=== PATIENT | male | born 1980 | race Caucasian/White ===

== ENCOUNTER 2017-09-19 10:37 | Emergency (ER) | payer OTHER ==
[~2017-09-19] VITALS: Ht 180.3 cm; Wt 71.9 kg
[2017-09-19 10:40] VITALS: Ht 180.3 cm; Wt 71.9 kg
[2017-09-19] MEDS ORDERED: IBUP-1542 PO (11:21)
[2017-09-19] MEDS ORDERED: AMOX500C2 PO (11:21)
--- NOTE | 2017-09-19 11:36 | ERD ---
ER Documentation Chief Complaint Chief Complaint HAS DENTAL PAIN R SIDE OF FACE HPI 37-year-old male comes in with right-sided dental pain that has been ongoing for almost a year now and is worse over the last 2 days. He describes achy pain to tooth, it is radiating to the cheek with swelling, it is worse when he speaks or tries to eat. He has some right-sided facial swelling with this and he has significant caries. Has not had any fevers, chills, chest discomfort voice changes, drooling. ROS All systems reviewed and are negative except as per history of present illness. Medications Home Meds Active Scripts Ibuprofen* (Motrin*) 600 Mg Tab, 600 MG PO Q6, #30 TAB Prov:DUANE OSUNA PA-C 09/19/17 Amoxicillin* (Amoxicillin*) 500 Mg Cap, 500 MG PO TID for 7 Days, CAP Prov:DUANE OSUNA PA-C 09/19/17 Allergies Allergies: Coded Allergies: No Known Allergy (Unverified , 06/16/13) PMhx/Soc History of Surgery: No Anesthesia Reaction: No Hx Neurological Disorder: No Hx Respiratory Disorders: No Hx Cardiac Disorders: No Hx Psychiatric Problems: No Hx Miscellaneous Medical Probl: No Hx Alcohol Use: No Hx Substance Use: No Hx Tobacco Use: No Physical Exam Vitals Vital Signs Date Time Temp Pulse Resp B/P Pulse Ox O2 Delivery O2 Flow Rate FiO2 09/19/17 10:40 98.0 94 18 129/85 99 Physical Exam General: Well-developed, well-nourished. The patient appears in no acute distress. HEENT: Head is normocephalic, atraumatic. No scleral icterus. There is right- sided facial swelling, there is no fluctuance, and there is no trismus, no drooling, oropharynx is clear. There are multiple caries, tooth is fractured, it is in the right upper teeth, approximately 20% of that is remaining rest has disintegrated. Poor dentition throughout, including multiple caries. Neck: Supple. Nontender. Lungs: Clear to auscultation. Normal air movement. Heart: Regular rate and rhythm. S1 and S2 are normal. No murmurs, gallops, or rubs. Abdomen: Soft, nontender, nondistended. Bowel sounds are normoactive. Extremities: No clubbing or cyanosis. Normal pulses. Moving extremities x 4. No weakness. Neurologic: Alert and oriented 3. No focal deficits. Skin: Normal turgor. No rash or lesions. Procedures/MDM 37-year-old male comes in with a fractured tooth from infection, there is some facial swelling associated with this and he will likely need tooth extraction, further dental evaluation. He will be started on antibiotics and ibuprofen for pain and swelling, and advised follow-up with a dentist in the next 1-2 days. There is no evidence of facial swelling to cause any airway threatening process , drooling or trismus, no emergent signs or conditions at this time. Departure Diagnosis: Primary Impression: Tooth disease Condition: Good Patient Instructions: Dental Cavity Referrals: [facility] ([facility]) Additional Instructions: You need to see a dentist in the next 1-2 days. Return sooner if your condition worsens. DUANE OSUNA PA-C Sep 19, 2017 11:36
== END 2017-09-19 11:19 | disposition home or self-care (01) ==
LOC: FTE 10:37
DX: K04.7 Periapical abscess without sinus (principal)